=== PATIENT | female | born 1970 | race Hispanic/Latino ===

== ENCOUNTER 2017-09-30 11:18 | Emergency (ER) | payer SELFPAY ==
[2017-09-30] MEDS ORDERED: Lidocaine 1% (PF) 30 ML VIAL ONE (11:58)
[2017-09-30] MEDS ORDERED: Triple Antibiotic Oint 1 GM Packet ONE (13:07)
== END 2017-09-30 12:26 | disposition home or self-care (01) ==
LOC: ERS 11:18
DX: L60.0 Ingrowing nail (principal); E11.9 Type 2 diabetes mellitus without complications
CPT/HCPCS: 11750; J2001